=== PATIENT | female | born 1950 | race Caucasian/White ===

== ENCOUNTER 2021-09-01 15:45 | Inpatient (IN) ==
[2021-09-01 16:33] LABS: Basophils # 0.1 K/mcL (0.0-0.2); Basophils % 0.8 %; Eosinophils # 0.4 K/mcL (0.0-0.6); Eosinophils % 4.1 %; Hematocrit 43.7 % (35.3-44.9); Hemoglobin 14.2 g/dL (11.5-15.4); Immature Granulocytes % 0.2 % (0-4); Lymphocytes # 3.9 K/mcL (0.6-4.6); Lymphocytes % 41.8 %; Mean Corpuscular HGB Conc 32.5 g/dL (31.6-35.5); Mean Corpuscular Hemoglobin 30.3 pg (28.0-33.3); Mean Corpuscular Volume 93.2 fL (83.0-100.0); Mean Platelet Volume 10.4 fL (9.4-12.4); Monocytes # 0.8 K/mcL (0.0-1.3); Monocytes % 8.4 %; Neutrophils # 4.2 K/mcL (1.6-8.9); Platelet Count 177 K/mcL (140-400); Red Blood Count 4.69 M/mcL (3.82-4.97); Red Cell Distribution Width 13.2 % (11.5-14.5); Segmented Neutrophils % 44.7 %; White Blood Count 9.3 K/mcL (4.3-11.1)
[2021-09-01 17:14] LABS: BUN/Creatinine Ratio 12 (6-26); Blood Urea Nitrogen 24 mg/dL (8-23); Calcium 9.6 mg/dL (8.6-10.3); Carbon Dioxide 24 mEq/L (23-29); Chloride 105 mEq/L (98-107); Glucose 170 mg/dL (70-105); Osmolality,Calculated 294 (280-300); Potassium 4.1 mEq/L (3.5-5.1); Sodium 138 mEq/L (136-145); Troponin I < 0.03 ng/mL (< 0.04); eGFR For African Americans 30 (> 60); eGFR For Non-African Americans 25 (> 60)
[2021-09-01 17:33] LABS: Influenza A PCR Negative (Negative); Influenza B PCR Negative (Negative); Resp. Syncytial Virus PCR Negative (Negative)
[2021-09-01 17:35] LABS: SARS-CoV-2 by PCR (In House) Negative (Negative)
[2021-09-01 17:38] LABS: INR 1.4; Prothrombin Time 15.2 Seconds (9.4-12.1)
[2021-09-01 17:40] LABS: Activated Partial Thrombo Time 25.2 Seconds (26.0-36.0)
[2021-09-01] MEDS ORDERED: Melatonin 3 MG TABLET PO PRN (19:26)
[2021-09-01] MEDS ORDERED: Naloxone 0.4 MG/ML INJ IVP PRN (19:26)
[2021-09-01] MEDS ORDERED: Ondansetron ODT 4 MG TAB.RAPDIS SL PRN (19:26)
[2021-09-01] MEDS ORDERED: Aspirin 325 MG TABLET PO ONE (19:29)
[2021-09-01] MEDS ORDERED: D5% in Water 1,000 ML IVC PRN (19:31)
[2021-09-01] MEDS ORDERED: *HR* Dextrose 50 % in Water (Syg) 50 ML SYRINGE IVP PRN (19:31)
[2021-09-01] MEDS ORDERED: Dextrose Gel 15 GM/37.5 ML TUBE PO PRN ×2 (19:31)
[2021-09-01] MEDS ORDERED: Perflutren Lipid Microsphere 1.3 ML in 0.9 % Sodium Chloride 8.7 ML IVP PRN (19:52)
[2021-09-01] MEDS ORDERED: Warfarin 0.5 MG, Warfarin 1 MG PO ONE (22:45)
[2021-09-02] MEDS: Insulin LISPRO 300 UNITS/3 ML VIAL SUBQ SCH ×4 (01:52→16:58)
[2021-09-02 05:47] LABS: Hematocrit 41.6 % (35.3-44.9); Hemoglobin 13.5 g/dL (11.5-15.4); Mean Corpuscular HGB Conc 32.5 g/dL (31.6-35.5); Mean Corpuscular Hemoglobin 29.9 pg (28.0-33.3); Mean Platelet Volume 10.4 fL (9.4-12.4); Platelet Count 161 K/mcL (140-400); Red Blood Count 4.52 M/mcL (3.82-4.97); Red Cell Distribution Width 13.2 % (11.5-14.5); White Blood Count 8.7 K/mcL (4.3-11.1)
[2021-09-02 06:07] LABS: Calcium 9.2 mg/dL (8.6-10.3); Magnesium 1.8 mg/dL (1.6-2.6); Phosphorous 3.7 mg/dL (2.7-4.5); Potassium 3.6 mEq/L (3.5-5.1)
[2021-09-02 06:18] LABS: INR 1.5; Prothrombin Time 17.1 Seconds (9.4-12.1)
[2021-09-02] MEDS ORDERED: Regadenoson 0.4 MG/5 ML SYRINGE IVP ONE (06:37)
[2021-09-02] MEDS: amLODIPine 5 MG TABLET PO SCH (10:03)
[2021-09-02] MEDS: calcitrioL 0.25 MCG CAPSULE PO SCH (10:03)
[2021-09-02] MEDS: Venlafaxine XR (24 HR) 150 MG CAP.ER.24H PO SCH (10:03)
[2021-09-02] MEDS: Aspirin 81 MG TAB.CHEW PO SCH (10:03)
[2021-09-02] MEDS: Metoprolol 100 MG TABLET PO SCH ×2 (10:08→21:59)
[2021-09-02] MEDS ORDERED: *HR* Warfarin 3 MG TABLET PO ONE (18:00)
[2021-09-02] MEDS ORDERED: Warfarin perPT PO PRN (18:00)
[2021-09-02] MEDS: Apixaban 5 MG TABLET PO SCH (22:00)
[2021-09-03] MEDS: Insulin LISPRO 300 UNITS/3 ML VIAL SUBQ SCH ×4 (00:32→18:30)
[2021-09-03 04:59] LABS: INR 2.1; Prothrombin Time 23.4 Seconds (9.4-12.1)
[2021-09-03] MEDS: Aspirin 81 MG TAB.CHEW PO SCH (07:42)
[2021-09-03] MEDS: amLODIPine 5 MG TABLET PO SCH (07:42)
[2021-09-03] MEDS: Metoprolol 100 MG TABLET PO SCH ×2 (07:42→21:08)
[2021-09-03] MEDS: Apixaban 5 MG TABLET PO SCH ×2 (07:42→21:08)
[2021-09-03] MEDS: Venlafaxine XR (24 HR) 150 MG CAP.ER.24H PO SCH (07:42)
[2021-09-03] MEDS: calcitrioL 0.25 MCG CAPSULE PO SCH (07:43)
[2021-09-03] MEDS ORDERED: Furosemide 40 MG/4 ML VIAL IVP ONE (09:50)
[2021-09-03] MEDS ORDERED: levoFLOXacin 750 MG/150 ML 750 MG/150 ML BAG IVPB SCH (15:00)
[2021-09-04 04:29] LABS: INR 2.1; Prothrombin Time 23.7 Seconds (9.4-12.1)
[2021-09-04] MEDS: Metoprolol 100 MG TABLET PO SCH (10:01)
[2021-09-04] MEDS: calcitrioL 0.25 MCG CAPSULE PO SCH (10:02)
[2021-09-04] MEDS: amLODIPine 5 MG TABLET PO SCH (10:02)
[2021-09-04] MEDS: Apixaban 5 MG TABLET PO SCH (10:03)
[2021-09-04] MEDS: Aspirin 81 MG TAB.CHEW PO SCH (10:03)
[2021-09-04] MEDS: Venlafaxine XR (24 HR) 150 MG CAP.ER.24H PO SCH (10:03)
[2021-09-04] MEDS: Insulin LISPRO 300 UNITS/3 ML VIAL SUBQ SCH ×2 (10:12→13:10)
[2021-09-04 14:39] VITALS: BP 123/74; PULSE 76; TEMP 98.2; O2SAT 94
[2021-09-05] MEDS ORDERED: levoFLOXacin 500 MG/100 ML 500 MG/100 ML BAG IVPB SCH (16:00)
== END 2021-09-04 16:58 | disposition home or self-care (01) | DRG 194 ==
LOC: 3BNU 15:45 → EMEROOARM 15:45 → SUATTDRO 18:46 → 3BNU 20:02
PROVIDERS: ADMIT Internal Medicine; ATTEND Registered Nurse